=== PATIENT | male | born 1970 | race Caucasian/White ===

== ENCOUNTER 2021-03-03 09:00 | Outpatient (CLI) | payer OTHER | END 2021-03-03 09:30 | disposition home or self-care (01) | LOC: PPH VACUNA 09:00 | PROVIDERS: ATTEND Emergency Medicine Pediatric Emergency Medicine | DX: Z23 Encounter for immunization (principal) ==

== ENCOUNTER 2022-03-20 07:54 | Outpatient (CLI) | payer OTHER | END 2022-03-20 08:06 | disposition home or self-care (01) | LOC: RAD 07:54 | PROVIDERS: ATTEND Urology | DX: N20.0 Calculus of kidney (principal) ==